=== PATIENT | female | born 1945 | race Caucasian/White ===

== ENCOUNTER 2022-10-16 14:30 | Outpatient (RCR) | payer MEDICARE, OTHER, SELFPAY ==
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
== END 2022-11-15 15:10 | disposition home or self-care (01) ==
LOC: SP 14:30
PROVIDERS: Referring Provider Specialist; Visit Provider Specialist
DX: R49.0 Dysphonia (principal)
CPT/HCPCS: 92507; 92520; 92524